=== PATIENT | male | born 1990 | race Caucasian/White ===

== ENCOUNTER 2019-01-12 19:27 | Emergency (ER) | payer OTHER ==
[2019-01-12] MEDS ORDERED: Tetracaine 0.5% OPTH.SOL 4 ML* 1 DROP BTL RIGHT EYE ONE (19:50)
[2019-01-12] MEDS ORDERED: Fluorescein Sodium TOPICAL* 1 MG TEST STRIP OPHTHALMIC ONE (19:50)
[2019-01-12] MEDS ORDERED: Tetan/Diph/Pertus SYR(Tdap)* 0.5 ML SYR(BOOSTRIX) use SYR IM ONE (20:08)
--- NOTE | 2019-01-12 20:08 | ED ---
Throat Pain/Nasal Congestion - HPI Summary HPI Summary: 29-year-old male presents with complaints of foreign body to the right eye. 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 He was wearing lapses with side baumann. States the discomfort was minimal at after getting home the discomfort began to worsen. States he was able to see a foreign body in the eye. Associated with some mild erythema and tearing. Denies blurred vision, double vision, or purulent discharge. - History of Current Complaint Chief Complaint: EDEyeProblem Time Seen by Provider: 01/12/19 19:50 Hx Obtained From: Patient - Allergies/Home Medications Allergies/Adverse Reactions: Allergies Allergy/AdvReac Type Severity Reaction Status Date / Time No Known Allergies Allergy Verified 01/12/19 19:44 PMH/Surg Hx/FS Hx/Imm Hx Previously Healthy: Yes - Denies significant PMH Psychiatric History: Reports: Hx Anxiety - Immunization History Immunizations Up to Date: Yes Infectious Disease History: No Infectious Disease History: Denies: Traveled Outside the [place] in Last 30 Days - Family History Known Family History: Positive: Non-Contributory - Social History Occupation: Employed Full-time Lives: With Family Alcohol Use: Occasionally Substance Use Type: Reports: None Smoking Status (MU): Heavy Every Day Tobacco Smoker Review of Systems Constitutional: Negative Positive: Erythema. Negative: Photophobia, Blurred Vision, Diplopia, Drainage ENT: Negative Cardiovascular: Negative Respiratory: Negative Gastrointestinal: Negative Genitourinary: Negative Musculoskeletal: Negative Skin: Negative Neurological: Negative All Other Systems Reviewed And Are Negative: Yes Physical Exam - Summary Physical Exam Summary: GENERAL APPEARANCE: Well developed, well nourished, alert and cooperative, and appears to be in no acute distress. EYES: Conjunctiva clear. No drainage. PERRL, EOM intact. Vision is grossly intact. CARDIAC: Normal S1 and S2. No S3, S4 or murmurs. Rhythm is regular. There is no peripheral edema, cyanosis or pallor. Extremities are warm and well perfused. Capillary refill is less than 2 seconds. Peripheral pulses intact. LUNGS: Clear to auscultation without rales, rhonchi, wheezing or diminished breath sounds. ABDOMEN: Positive bowel sounds. Soft, nondistended, nontender. No guarding or rebound. No masses or hepatosplenomegally. MUSKULOSKELETAL: ROM intact to all extremities. No joint erythema or tenderness. Normal muscular development. Normal gait. SKIN: Skin normal color, texture and turgor with no lesions or eruptions. Triage Information Reviewed: Yes Vital Signs On Initial Exam: Initial Vitals Temp Pulse Resp BP Pulse Ox 98.6 F 95 16 147/97 97 01/12/19 19:40 01/12/19 19:40 01/12/19 19:40 01/12/19 19:40 01/12/19 19:40 Vital Signs Reviewed: Yes Procedures - Eye Procedure Right Alcaine Drops Administered: Yes Eye FB Removal: removal w/ needle Antibiotic Ointment/Drps Admin: right eye Diagnostics - Vital Signs Vital Signs Temp Pulse Resp BP Pulse Ox 01/12/19 19:40 98.6 F 95 16 147/97 97 - Laboratory Lab Statement: Any lab studies that have been ordered have been reviewed, and results considered in the medical decision making process. EENT Course/Dx - Course Course Of Treatment: 29-year-old male presents with complaints of foreign body to the right eye. 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 He was wearing lapses with side baumann. States the discomfort was minimal at after getting home the discomfort began to worsen. States he was able to see a foreign body in the eye. Associated with some mild erythema and tearing. Denies blurred vision, double vision, or purulent discharge. Afebrile. Hypertensive but otherwise vital signs stable. Patient had an obvious foreign body to the right eye at the 3 o'clock position. Visual acuity is reported to be normal by the RN. Tetracaine drops were instilled into the right eye. A slit lamp exam was performed and a metallic foreign body was noted without rust ring. I was able to partially remove the foreign body using a needle bevel was unsuccessful in removing in its entirety I consulted with Dr. Ritter who reexamined the patient in conjunction with me and he was able to fully remove the foreign body using a needle bevel. A reexamination with slit was performed and no other foreign body was noted. Erythromycin ophthalmic ointment was instilled into the right eye and dispensed home with the patient to use 4 times a day 5 days. Patient is to follow-up with ophthalmology in one to 2 days if symptoms are not improving. Anticipatory guidance and warning symptoms were reviewed with the patient. Verbalizes understanding and agrees with plan of care. - Differential Diagnoses Differential Diagnoses: Abrasion - Corneal, Conjunctivitis, Foreign Body - Diagnoses Provider Diagnoses: Foreign body of right eye Discharge - Sign-Out/Discharge Documenting (check all that apply): Patient Departure Patient Received Moderate/Deep Sedation with Procedure: No - Discharge Plan Condition: Stable Disposition: HOME Patient Education Materials: Eye Foreign Body (ED) Referrals: No Primary Care Phys,NOPCP [Primary Care Provider] - Additional Instructions: We were able to successfully remove the foreign body from your eyes. Use the erythromycin ophthalmic ointment. Apply a thin strip to your lower lid and then blink to spread around the eye. You'll need to do this 4 times a day for the next 5 days. Take ibuprofen (Advil, Motrin) according directions as needed for pain. Follow-up with ophthalmology in 1-2 days if you continue to have symptoms. Return to the emergency room if you have any visual disturbances, loss of vision , severe eye pain is not managed with pain medication, or any worsening of symptoms. - Billing Disposition and Condition Condition: STABLE Disposition: Home - Attestation Statements Provider Attestation: pt seen by midlevel provider independently, based on their assessment, it was not necessary to present the case to me but I was available for consultation. I did not form a physician-patient relationship with the patient. The chart however, has been reviewed. am signing this note strictly in an administrative capacity.
[2019-01-12] MEDS ORDERED: Erythromycin OPTH OINT* APPLIC OINT RIGHT EYE ONE (20:29)
[2019-01-12 20:57] VITALS: BP 134/95
[2019-01-12] MEDS ORDERED: Erythromycin OPTH OINT* APPLIC OINT ONE (20:59)
== END 2019-01-12 20:52 | disposition home or self-care (01) ==
LOC: ED 19:27
DX: T15.91XA Foreign body on external eye, part unspecified, right eye, initial encounter (principal); F41.9 Anxiety disorder, unspecified; F17.210 Nicotine dependence, cigarettes, uncomplicated; X58.XXXA Exposure to other specified factors, initial encounter; Y92.89 Other specified places as the place of occurrence of the external cause; Y99.0 Civilian activity done for income or pay
CPT/HCPCS: 90471; 90715; 99282; A9270-GY

== ENCOUNTER 2019-05-03 16:30 | Emergency (ER) | payer BC, OTHER ==
--- NOTE | 2019-05-03 18:07 | ED ---
HPI Chest Pain - HPI Summary HPI Summary: Pt is a 29 y/o M presenting to the ED with a chief complaint of chest pain initially onset last night when he was at work. The pain is described as stabbing and is worse with movement, specifically bending over. The pain slowly resolved over the course of the night, but re-developed this morning over time. He took IBU for pain w/o relief. He also reports increased fatigue, some belching. Decreased appetitie. pt with a hx of pericarditis, likely from a dental infection seeral years ago. He denies SOB, nausea, vomiting, back pain, trauma to the area, cough, rash, and edema or cramping in LE. no diaphoresis. mild nausea. He takes Xanax for anxiety but states this did not feel like an anxiety attack. Pt did not take anything to treat these sx. Pts medications reviewed this visit. - History of Current Complaint Chief Complaint: EDChestPainROMI Time Seen by Provider: 05/03/19 17:28 Hx Obtained From: Patient Onset/Duration: Started Hours Ago, Still Present Timing: Constant, Lasting Hours Initial Severity: Moderate Current Severity: Mild Pain Intensity: 1 Pain Scale Used: 0-10 Numeric Chest Pain Location: Left Anterior Character: Sharp/Stabbing Aggravating Factor(s): Movement Alleviating Factor(s): Nothing Associated Signs and Symptoms: Positive: Chest Pain. Negative: Shortness of Breath, Nausea, Cough, Back Pain, Calf Pain/Swelling, Vomiting - Allergy/Home Medications Allergies/Adverse Reactions: Allergies Allergy/AdvReac Type Severity Reaction Status Date / Time No Known Allergies Allergy Verified 01/12/19 19:44 Home Medications: Home Medications Acetaminophen TAB* [Tylenol TAB*] 650 mg PO Q4H PRN 05/03/19 [History Confirmed 05/03/19] PMH/Surg Hx/FS Hx/Imm Hx Previously Healthy: Yes Cardiovascular History: Reports: Other Cardiovascular Problems/Disorders - percarditis Sensory History: Denies: Hx Contacts or Glasses Opthamlomology History: Denies: Hx Contacts or Glasses Psychiatric History: Reports: Hx Anxiety Infectious Disease History: No Infectious Disease History: Denies: Traveled Outside the [place] in Last 30 Days - Family History Known Family History: Positive: Cardiac Disease, Hypertension, Diabetes, Non- Contributory - Social History Occupation: Employed Full-time Lives: With Family Alcohol Use: Occasionally Hx Substance Use: Yes Substance Use Type: Reports: Excessive Caffeine Hx Tobacco Use: Yes Smoking Status (MU): Heavy Every Day Tobacco Smoker Review of Systems Positive: Fatigue Positive: Chest Pain Negative: Shortness Of Breath, Cough Negative: Vomiting, Nausea Negative: Myalgia - back pain, Edema Negative: Rash All Other Systems Reviewed And Are Negative: Yes Physical Exam - Summary Physical Exam Summary: Vital Signs Reviewed: Yes A+Ox3, no distress Eyes: Conjunctiva Clear, BLAKE. EOM intact and full ENT: Hearing grossly normal TM x 2 clear, mmoist, uvula midline, no exudate, no erythema Neck: Positive: Supple Respiratory: Positive: No respiratory distress, No accessory muscle use + CTA throughout no w/r Cardiovascular: RRR nl s1, s2 no m/r CBT <2 sec mild reproduced pain with palpation left lower ribs and epigastric abd soft + BS, nd soft no guarding, no rebound + TTP epigastric - no rebound Musculoskeletal Exam: ZAMARRIPA x 4 without difficulty Strength Intact, ROM Intact Neurological: Positive: Alert, + sensation throughout Psychological: Positive: Normal Response To examiner Skin: Positive: no rash, no ecchymosis Triage Information Reviewed: Yes Vital Signs On Initial Exam: Initial Vitals Temp Pulse Resp BP Pulse Ox 97.8 F 96 20 144/94 96 05/03/19 16:31 05/03/19 16:31 05/03/19 16:31 05/03/19 16:31 05/03/19 16:31 Vital Signs Reviewed: Yes Procedures - Sedation Patient Received Moderate/Deep Sedation with Procedure: No Diagnostics - Vital Signs Vital Signs Temp Pulse Resp BP Pulse Ox 05/03/19 17:29 86 118/79 98 05/03/19 16:31 97.8 F 96 20 144/94 96 - Laboratory Result Diagrams: 05/03/19 18:08 05/03/19 18:08 Lab Statement: Any lab studies that have been ordered have been reviewed, and results considered in the medical decision making process. - Radiology CXR Radiology Interpretation Completed By: ED Physician Summary of Radiographic Findings: No acute processs. Pending official radiology report. Re-Evaluation - Re-Evaluation 1st re-eval Re-Evaluation Time: 18:31 Change: Improved Comment: The Maalox helped Chest Pain Course/Dx - Course Course Of Treatment: Patient presents to urgent care with 24 hours of left- sided anterior chest pain. Patient states it's worse when he lies flat or with movement. Patient has shortness of breath. Patient has been belching with some mild nausea. No diaphoresis. Patient states he is concerned as it doesn' t feel like when he had pericarditis or his anxiety. No analgesic taken. Patient states no variation with food. On exam vital signs are stable. Patient does have reproducible epigastric pain and left lower rib pain. Patient 's exam is otherwise not concerning. We'll give patient Mehran articulate a chest x-ray (troponin and lipase. We'll reassess. Patient is partner comfortable with plan. Blood pressure borderline high likely related to condition - Diagnoses Provider Diagnoses: Epigastric pain Discharge ED - Sign-Out/Discharge Documenting (check all that apply): Patient Departure - Discharge Plan Condition: Stable Disposition: HOME Prescriptions: Famotidine TAB* [Pepcid 20 MG TAB*] 20 mg PO DAILY #14 tab Patient Education Materials: Epigastric Pain (ED) Forms: *Work Release Referrals: [facility] [place] PHYSICIAN REFERRAL [Outside] Additional Instructions: - Stay well hydrated. Drink plenty of non-alcoholic, non-caffinated beverages - Okay to alternate ibuprofen (Advil, Motrin) and Tylenol (acetaminophen) every 3 hours for pain or fever. Take with food. Do NOT take for more than 4-5 days. - For the first 6 hours, eat and drink clears (water, george mila, soup broth, jello, popsicles, Gatorade). If you tolerate this okay, add bland foods such as dry toast, scrambled eggs, crackers. Wait until you are feeling better for 24 hours before eating spicy food, acidic food, tomato based food, fried food. - Take pepcid daily as prescribed - Okay to use Tums or maalox for your pain - Contact the physician referral center for assistance establishing with a primary care provider. If your pain increases, you develop vomiting, shortness of breath or other concerns contact your provider or return to the emergency department As discussed, your radiograph was reviewed by the provider that treated you tonight. It will be read by a radiologist tomorrow morning. If there is a finding other than that discussed with you today, you will receive a call from a care provider. - Billing Disposition and Condition Condition: STABLE Disposition: Home - Attestation Statements Document Initiated by Scribe: Yes Documenting Scribe: Neli Hernandez Provider For Whom Jackieibe is Documenting (Include Credential): Dyan Luther MD. Scribe Attestation: Neli Valle, scribed for Dyan Luther MD. on 05/07/19 at 1501. Scribe Documentation Reviewed: Yes Provider Attestation: The documentation as recorded by the scribe, Neli Hernandez accurately reflects the service I personally performed and the decisions made by me, Dyan Luther MD. Status of Scribe Document: Viewed
[2019-05-03] MEDS: NS 0.9% 1000 ML** 1,000 ML IV ONE (18:10)
[2019-05-03] MEDS: Al Hydrox/Mg Hydrox/Simet LIQ* 30 ML UDC PO ONE (18:10)
[2019-05-03] MEDS: Famotidine IV* 10 MG/ML 2 ML (20 mg) IV SLOW PU ONE (18:10)
[2019-05-03 18:19] LABS: ABS Eosinophils 0.1 10^3/ul (0-0.6); ABS Lymphocytes 2.1 10^3/ul (1.0-4.8); ABS Monocytes 0.7 10^3/ul (0-0.8); ABS Neutrophils 5.1 10^3/ul (1.5-7.7); Eosinophil % 1.2 %; Hematocrit 49 % (42-52); Lymphocyte % 26.8 %; Mean Corpuscular HGB Conc 35 g/dL (31-36); Mean Corpuscular Hemoglobin 31 pg (27-31); Mean Corpuscular Volume 89 fL (80-94); Mean Platelet Volume 7.4 fL (7.4-10.4); Platelet Count 216 10^3/uL (150-450); Red Cell Distribution Width 13 % (10-15)
[2019-05-03 18:37] LABS: Albumin 4.9 g/dL (3.2-5.2); Albumin/Globulin Ratio 1.4 (1-3); BUN/Creatinine Ratio 12.8 (8-20); Calcium 10.1 mg/dL (8.6-10.3); EGFR African American 126.3 (>60); EGFR Non-African American 104.4 (>60); Globulin 3.4 g/dL (2-4); Magnesium 2.1 mg/dL (1.9-2.7); Potassium 3.7 mmol/L (3.5-5.0); Total Bilirubin 0.3 mg/dL (0.2-1.0); Total Protein 8.3 g/dL (6.4-8.9)
[2019-05-03 18:59] VITALS: BP 123/87
== END 2019-05-03 18:53 | disposition home or self-care (01) ==
LOC: ED 16:30
DX: R10.13 Epigastric pain (principal); F41.9 Anxiety disorder, unspecified; F17.200 Nicotine dependence, unspecified, uncomplicated
CPT/HCPCS: 36415; 71046; 80053; 83690; 83735; 84484; 85025; 93005; 96361; 96374; 99282; A9270-GY